=== PATIENT | female | born 1965 | race Caucasian/White ===

== ENCOUNTER 2019-02-21 16:23 | Emergency (ER) | payer OTHER ==
[2019-02-21 16:45] VITALS: BP 132/86
--- NOTE | 2019-02-21 17:20 | UC ---
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) - History of Current Complaint Chief Complaint: UCGeneralIllness Stated Complaint: SORE THROAT Time Seen by Provider: 02/21/19 17:12 Hx Obtained From: Patient Hx Last Menstrual Period: Aug 2018 Onset/Duration: Gradual Onset, Lasting Days Severity: Mild Pain Intensity: 1 Pain Scale Used: 0-10 Numeric Associated Signs & Symptoms: Positive: Dysphagia Related History: Seasonal Allergies, Prior ENT Surgery - Epiglottits Risk Factors Epiglottis Risk Factors: Negative - Allergies/Home Medications Allergies/Adverse Reactions: Allergies Allergy/AdvReac Type Severity Reaction Status Date / Time epinephrine Allergy Intermediate chest Verified 02/21/19 16:46 pain, palpitations environmental Allergy resp/ Uncoded 02/21/19 16:46 throat Home Medications: Home Medications Loratadine [Claritin] 1 tab PO DAILY 02/21/19 [History Confirmed 02/21/19] PMH/Surg Hx/FS Hx/Imm Hx Previously Healthy: Yes - Surgical History Surgical History: None - Family History Known Family History: Positive: Hypertension, Non-Contributory - Social History Alcohol Use: Weekly Substance Use Type: None Smoking Status (MU): Never Smoked Tobacco Review of Systems All Other Systems Reviewed And Are Negative: Yes Constitutional: Positive: Negative Skin: Positive: Negative Eyes: Positive: Negative ENT: Positive: Sore Throat, Sinus Congestion Respiratory: Positive: Negative Cardiovascular: Positive: Negative Gastrointestinal: Positive: Negative Genitourinary: Positive: Negative Motor: Positive: Negative Neurovascular: Positive: Negative Musculoskeletal: Positive: Negative Neurological: Positive: Negative Psychological: Positive: Negative Physical Exam Triage Information Reviewed: Yes Appearance: Well-Appearing, No Pain Distress, Well-Nourished Vital Signs: Initial Vital Signs Temp 99.6 F 02/21/19 16:42 Pulse 90 02/21/19 16:42 Resp 16 02/21/19 16:42 BP 132/86 02/21/19 16:42 Pulse Ox 98 02/21/19 16:42 Vital Signs Reviewed: Yes Eyes: Positive: Conjunctiva Clear ENT: Positive: Hearing grossly normal, Uvula midline. Negative: Pharyngeal erythema, Nasal congestion, Nasal drainage, Tonsillar swelling, Tonsillar exudate, Trismus, Muffled voice, Hoarse voice Neck: Positive: Supple, Enlarged Nodes @ - tender ant cerv nodes, no supracalvicular LN or post cervical nodes Respiratory: Positive: Lungs clear, Normal breath sounds, No respiratory distress, No accessory muscle use Cardiovascular: Positive: RRR, No Murmur Abdomen Description: Positive: Nontender, No Organomegaly. Negative: Hepatomegaly, Splenomegaly Bowel Sounds: Positive: Present Musculoskeletal: Positive: ROM Intact, No Edema Neurological: Positive: Alert Psychological Exam: Normal Skin Exam: Normal Diagnostics - Laboratory Lab Results: strep (-) Throat Pain/Nasal Course/Dx - Differential Dx/Diagnosis Provider Diagnosis: Dysphagia, Cervical lymphadenopathy, Dyspepsia Discharge - Sign-Out/Discharge Documenting (check all that apply): Patient Departure All imaging exams completed and their final reports reviewed: No Studies - Discharge Plan Condition: Stable Disposition: HOME Prescriptions: Omeprazole 20 mg PO DAILY #14 capsule. Patient Education Materials: Lymphadenopathy (ED), Gastroesophageal Reflux Disease (ED), Dysphagia (ED) Referrals: Meryl Florian MD [Primary Care Provider] - 5 Days Additional Instructions: because of your heart burn I suggest you try a trial of omeprazole a blood count and mono test is pending if symptoms persist you may need to see you ENT for laryngoscopy - Billing Disposition and Condition Condition: STABLE Disposition: Home
[2019-02-22 11:43] LABS: ABS Eosinophils 0.2 10^3/ul (0-0.6); ABS Lymphocytes 1.8 10^3/ul (1.0-4.8); ABS Monocytes 0.5 10^3/ul (0-0.8); ABS Neutrophils 3.3 10^3/ul (1.5-7.7); Eosinophil % 3.8 %; Hematocrit 40 % (35-47); Hemoglobin 13.5 g/dL (12.0-16.0); Lymphocyte % 30.7 %; Mean Corpuscular HGB Conc 34 g/dL (31-36); Mean Corpuscular Hemoglobin 31 pg (27-31); Mean Corpuscular Volume 91 fL (80-97); Mean Platelet Volume 10.5 fL (7.4-10.4); Nucleated Red Blood Cells % 0.1; Platelet Count 237 10^3/uL (150-450); Red Blood Count 4.38 10^6 /uL (3.70-4.87); Red Cell Distribution Width 12 % (10-15); White Blood Count 5.8 10^3/uL (3.5-10.8)
== END 2019-02-21 17:35 | disposition home or self-care (01) ==
LOC: UCEAST 16:23
DX: R13.10 Dysphagia, unspecified (principal); R59.1 Generalized enlarged lymph nodes; R10.13 Epigastric pain
CPT/HCPCS: 36415; 85025; 86308; 87651; 99202; G0463